=== PATIENT | male | born 1945 | race Caucasian/White ===

== ENCOUNTER → 2017-04-02 | Outpatient (CLI) | payer OTHER, BC | LOC: BHLMT 09:15 | PROVIDERS: ATTEND Internal Medicine | DX: I72.9 Aneurysm of unspecified site (principal) | CPT/HCPCS: 76775-PO ==

== ENCOUNTER → 2018-11-13 | Outpatient (CLI) | payer OTHER, BC | LOC: CIMAGING 07:53 | PROVIDERS: ATTEND Nurse Practitioner Family | DX: I71.4 Abdominal aortic aneurysm, without rupture (principal); I25.10 Atherosclerotic heart disease of native coronary artery without angina pectoris; E78.5 Hyperlipidemia, unspecified ==